=== PATIENT | male | born 1960 | race Caucasian/White ===

== ENCOUNTER → 2019-04-23 | Outpatient (CLI) | payer OTHER ==
[2019-04-23 12:52] LABS: Body Fluid Crystals POS (NEGATIVE)
[2019-04-23 13:08] LABS: WBC Count, Synovial Fluid 1151 /mm3 (0-180)
[2019-04-23 13:27] LABS: RBC Count, Synovial Fluid 638 /mm3 (0-0)
[2019-04-23 14:03] LABS: Appearance, Synovial Fluid Hazy (Clear); Color, Synovial Fluid Yellow (None-P Yel); Lymphs, Synovial Fluid 27 % (0-15); Monocytes/Macrophages, Synovia 55 % (0-65); Neutrophils, Synovial Fluid 18 % (0-24)
== END | disposition home or self-care (01) ==
LOC: LAB 11:36 → LAB SHORT 11:36
PROVIDERS: Orthopaedic Surgery
DX: R22.42 Localized swelling, mass and lump, left lower limb (principal)
CPT/HCPCS: 87070; 87075; 87205; 89051; 89060